=== PATIENT | female | born 1965 | race Caucasian/White ===

== ENCOUNTER 2017-11-02 15:31 | Emergency (ER) | payer BC ==
--- NOTE | 2017-11-02 15:56 | ED Physician Documentation ---
General Adult - HISTORIAN Historian: patient - HPI Stated Complaint: alcohol intoxication Chief Complaint: Altered Mental Status Onset: other (she did drink 10 shots of rum last night and some today spouse is not sure of what today ) Further Comments: yes (She is a known alcoholic and she was drinking last night and she was accepted to a treatment facility and she states she did take up to 10 shots of rum he states he is not sure of any other meds or alcohol. He states she has not had anything to drink. She states she did. Her words are slurred. Denies wanting to kill herself) Last known Well Code/Unknown Code: Unknown - ROS CONST: no problems CVS/RESP: none - PAST HX Past History: other (fibromyalgia, depression, history of anxiety (once had an RX for ativan)) Other History: none Surgeries/Procedures: other Immunizations: UTD Allergies/Adverse Reactions: Allergies Allergy/AdvReac Type Severity Reaction Status Date / Time Sulfa (Sulfonamide Allergy Verified 11/02/17 15:51 Antibiotics) Home Medications: Ambulatory Orders Medication Instructions Recorded Chlordiazepoxide HCl [Librium] 10 mg PO BID PRN 11/02/17 Disulfiram [Antabuse] 500 mg PO DAILY 11/02/17 Folic Acid [Folvite] 1 mg PO DAILY 11/02/17 Gabapentin 600 mg PO TID 11/02/17 Hydroxyzine HCl [Atarax] 25 mg PO TID PRN 11/02/17 Lisinopril [Zestril] 40 mg PO DAILY 11/02/17 Magnesium Oxide [Magnesium] 500 mg PO DAILY 11/02/17 Melatonin [Melatin] 3 mg PO HS 11/02/17 Pregabalin [Lyrica] 50 mg PO Q8H 11/02/17 Thiamine HCl [Vitamin B-1] 200 mg PO DAILY 11/02/17 Tizanidine HCl [Zanaflex] 4 mg PO Q8H PRN 11/02/17 Trazodone HCl 100 mg PO HS 11/02/17 - SOCIAL HX Smoking History: non-smoker Alcohol Use: heavy Drug Use: none - FAMILY HX Family History: Yes - REVIEWED ASSESSMENTS Nursing Assessment Reviewed: Yes Vitals Reviewed: Yes Progress - Progress Progress: 1545: sleeping in bed. Awakens to name. Is able to state her location. She is not aware of exact time. DG 1700: She is requesting no cath for urine and wants to try to use the bedpan. States she is super sleepy DG 1740: She is now awake and asking to talk to her . Complains of no pain or other issues DG 1805: Talking with family. Alert and Oriented x 3 . Denies any meds with benzo. DG ED Results Lab/Radiology - Orders Orders: ED Orders Category Date Time Status 0.9 % Sodium Chloride [Normal Saline] 2,000 ml Med 11/02/17 15:43 Discontinued IV .STK-MED Folic Acid [Folvite] Med 11/02/17 15:43 Discontinued 5 mg .ROUTE .STK-MED ONE Multivit Infusn,Adult 1,Vit K [M.v.i. Adult] Med 11/02/17 15:43 Discontinued 10 ml IV .STK-MED ONE Thiamine HCl Med 11/02/17 15:43 Discontinued 200 mg .ROUTE .STK-MED ONE General Adult Physical Exam - PHYSICAL EXAM GENERAL APPEARANCE: no distress EENT: eye inspection normal, RONNA NECK: normal inspection RESPIRATORY: no resp distress, chest non-tender, breath sounds normal CVS: heart sounds normal, no murmur, bradycardia (regular ) ABDOMEN: soft, normal bowel sounds, no distension, non-tender SKIN: warm/dry, normal color EXTREMITIES: non-tender, normal range of motion, no evidence of injury, no edema NEURO: speech/cognition abnml (slurred speech. she is oriented to place and date. ) Discharge Clincal Impression: Alcohol abuse, Benzodiazepine abuse Referrals: Primary Doctor,No [Primary Care Provider] - 2 Days Comments: 1. Return to [facility] as accepted for alcohol abuse 2. Do not take any further meds 3. Return to ER for concerns Condition: Stable Disposition: 01 HOME, SELF-CARE Decision to Admit: NO Date of Decison to Admit: 11/02/17 Decision Time: 18:09
[2017-11-02] MEDS: THIAMINE HCL 100 MG, MULTIVIT INFUSN,ADULT 1,VIT K 10 ML, FOLIC ACID 5 MG in 0.9 % SODI... IV SCH (16:05)
[2017-11-02] MEDS: THIAMINE HCL 100 MG/ML 2ML VIAL ONE (16:05)
[2017-11-02] MEDS: 0.9 % SODIUM CHLORIDE 2,000 ML IV ONE (16:05)
[2017-11-02] MEDS: MULTIVIT INFUSN,ADULT 1,VIT K 10 ML VIAL IV ONE (16:05)
[2017-11-02] MEDS: FOLIC ACID 5 MG/1 ML ONE (16:05)
[2017-11-02 16:11] LABS: BASOPHILS % 0.2 (0.0-1.5); EOSINOPHILS % 1.7 % (0.0-6.8); MEAN CORPUSCULAR HEMOGLOBIN 29.1 pg (28.0-34.0); MEAN CORPUSCULAR VOLUME 93.2 fl (80.0-100.0); NEUTROPHILS # 6.2 # k/uL (1.4-7.7)
[2017-11-02] MEDS: 0.9 % SODIUM CHLORIDE 1,000 ML IV ONE ×2 (16:34→17:15)
[2017-11-02 16:39] LABS: eGFR (African) > 60; eGFR (Non-African) > 60
[2017-11-02] MEDS: FLUMAZENIL 0.1 MG/ML 5ML VIAL IV ONE ×2 (17:35→17:38)
[2017-11-02 18:48] VITALS: BP 100/60
[2017-11-03 06:43] LABS: APPEARANCE,URINE CLOUDY (CLEAR); CANNABINOIDS NEGATIVE ng/mL (< 50); COLOR,URINE AMBER (YELLOW); METHYLENEDIOXYMETHAMPHETAMINE NEGATIVE ng/mL (<500); OCCULT BLOOD,URINE NEGATIVE (NEGATIVE)
[2017-11-03 06:44] LABS: UROBILINOGEN URINE 0.2 Eu (0.2-1.0)
== END 2017-11-02 18:30 | disposition home or self-care (01) ==
LOC: ED 15:31
DX: F10.129 Alcohol abuse with intoxication, unspecified (principal); F19.10 Other psychoactive substance abuse, uncomplicated
CPT/HCPCS: 80053; 80320; 80377; 81002; 85025; 87086; J3411; J3490; J7030; 96365; 96366; 96375; G0480; G0481; S1016